=== PATIENT | male | born 2000 | race Hispanic/Latino ===

== ENCOUNTER 2021-07-09 11:25 | Emergency (ER) | payer OTHER, SELFPAY ==
--- NOTE | ~2021-07-09 | XR_ITS ---
XR chest 2V DATE: 07/09/2021 14:53 INDICATION: Left-sided chest pain TECHNIQUE: PA and lateral views COMPARISON: 09/12/2019 PA chest FINDINGS: Normal heart size. No hilar or mediastinal enlargement. No pulmonary infiltrate or consolid ation, pleural effusion or pulmonary vascular congestion or pneumothorax. Included skeletal structure s are normal. IMPRESSION: Negative Reviewed, dictated and finalized at location A. [facility] ASS[employer] IMPRESSION: Negative
[2021-07-09 11:30] VITALS: BP 131/80; PULSE 52; RESP 16; TEMP 36.6; O2SAT 99
[2021-07-09 14:05] VITALS: BP 120/74; PULSE 52; RESP 16; O2SAT 99
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
--- NOTE | 2021-07-09 15:09 | PC.NURSE ---
assuming care from peg montes
[2021-07-09 16:22] VITALS: BP 123/81; PULSE 104; RESP 18; O2SAT 100
== END 2021-07-09 16:24 | disposition home or self-care (01) ==
PROVIDERS: Emergency Provider Nurse Practitioner; PCP Registered Nurse
DX: S20.212A Contusion of left front wall of thorax, initial encounter (principal); V49.40XA Driver injured in collision with unspecified motor vehicles in traffic accident, initial encounter
CPT/HCPCS: 71046; 99283

== ENCOUNTER 2021-08-19 12:44 | Emergency (ER) | payer OTHER, SELFPAY ==
[2021-08-19 12:52] VITALS: BP 121/66; PULSE 82; RESP 16; TEMP 37.6; O2SAT 100
--- NOTE | 2021-08-19 13:02 | ED.URI ---
HPI - URI/Sore Throat General Chief Complaint: Medical Clearance Stated Complaint: chills/weller/congestion Time Seen by Provider: 08/19/21 13:21 Source: patient and RN notes reviewed Mode of arrival: ambulatory Limitations: no limitations History of Present Illness HPI Narrative: 20-year-old male presents with concern for low-grade fever, headache runny nose yesterday. Reports he took Tylenol and his symptoms resolved. Reports he missed work today because of his sickness yesterday. He denies any current symptoms such as headache, body aches, chills, sweats, cough, nasal congestion or rhinorrhea. Reports has not been vaccinated for Covid. MD elicited complaint: nasal congestion Related Data Allergies Allergy/AdvReac Type Severity Reaction Status Date / Time No Known Allergies Allergy Verified 08/19/21 12:58 Review of Systems Review of Systems: CONSTITUTIONAL: Denies malaise, chills, sweats, or fever. EYES: Denies visual changes, redness, or discharge. ENT: Denies rhinorrhea, congestion, sinus pain, otalgia and sore throat. CARDIOVASCULAR: Denies chest pain, palpitations, or edema. RESPIRATORY: Denies cough. Denies dyspnea. GASTROINTESTINAL: Denies abdominal pain, nausea, vomiting, diarrhea SKIN: Denies rash or itching. MUSCULOSKELETAL: Denies myalgia. NEUROLOGIC: Denies headache. All systems reviewed & are unremarkable except as noted in HPI and below PMFSH Past Medical History Medical History (Updated 08/19/21 @ 13:35 by Clara Olson NP) Healthy adolescent Surgical History Surgical History No pertinent past surgical history Family History Family History Mother No pertinent past medical history Social History Social History (Updated 07/09/21 @ 14:53 by Declan Keith, [facility], ) Smoking status: Never smoker Alcohol intake: never Substance use: never Gender identity (if verbalized by the patient): Male Spiritual care concerns: No Comments At time of signature, agree with nursing past medical, surgical, social and family history. There is no relevant family history pertinent to the presenting complaint Exam Narrative: GENERAL: Well-appearing, well-nourished, and in no acute distress. HEAD: Normocephalic EYES: PERRLA, conjunctivae clear ENT: Nares clear. Mucous membranes moist. TM pearly higgins with sharp light reflex bilaterally; no tragal tenderness. Oropharynx not erythematous without lesions. Tonsils not enlarged and without exudate, no drooling, no hoarseness, no trismus, uvula midline. NECK: Supple. No lymphadenopathy CHEST: Clear to auscultation, breath sounds equal. No wheezing, rhonchi, rales, or stridor. No respiratory distress, speaks in full sentences. HEART: Regular rate and rhythm. No murmur heard. SKIN: Warm, dry, no rash. NEURO: Alert and oriented x3. PSYCH: Normal mood and affect Course Course Emergency Course: Discussed with patient possible false negative with rapid Covid. Discussed seeking testing if symptoms return or new symptoms develop. Patient is aware of diagnosis, understands and agrees to treatment plan. Anticipatory guidance given. Patient agrees to follow-up as directed and is aware of reasons to seek care at the emergency department. Portions of this record may have been created with voice recognition software Vital Signs Vital signs: Vital Signs Temperature 99.6 F 08/19/21 12:52 Pulse Rate 82 08/19/21 12:52 Respiratory Rate 16 08/19/21 12:52 Blood Pressure 121/66 08/19/21 12:52 Pulse Oximetry 100 08/19/21 12:52 Temperature 99.6 F 08/19/21 12:52 Pulse Rate 82 08/19/21 12:52 Respiratory Rate 16 08/19/21 12:52 Blood Pressure 121/66 08/19/21 12:52 Pulse Oximetry 100 08/19/21 12:52 Reviewed. MDM - URI/Sore Throat MDM Narrative Medical decision making narrative: Differential diagnosis considered: Ann v
== END 2021-08-19 13:40 | disposition home or self-care (01) ==
PROVIDERS: Emergency Provider Nurse Practitioner; PCP Registered Nurse
DX: R09.89 Other specified symptoms and signs involving the circulatory and respiratory systems (principal); Z20.822 Contact with and (suspected) exposure to COVID-19
CPT/HCPCS: 87426; 99213; C9803; G0463

== ENCOUNTER 2021-11-18 09:48 | Emergency (ER) | payer OTHER, SELFPAY ==
--- NOTE | ~2021-11-18 | XR_ITS ---
XR wrist RT min 3V 11/18/2021 10:17 INDICATION: Right wrist pain PROCEDURE: 4 views right wrist COMPARISON: No prior studies for comparison. FINDINGS: Fracture, dislocation or subluxation is not identified. The soft tissues appear within norm al limits. No foreign bodies are identified. IMPRESSION: 1: NO ACUTE BONE OR JOINT ABNORMALITY IDENTIFIED. Reviewed, dictated and finalized at location A.
[2021-11-18 09:57] VITALS: BP 116/75; PULSE 69; RESP 18; TEMP 37; O2SAT 99
--- NOTE | 2021-11-18 10:02 | ED.URI ---
HPI - URI/Sore Throat General Chief Complaint: Extremity Injury, Upper Stated Complaint: Cough,Runny Nose Time Seen by Provider: 11/18/21 10:02 Source: patient Mode of arrival: ambulatory Limitations: no limitations History of Present Illness HPI Narrative: 21 yo M presents with c/o sore throat, cough, congestion, watery eyes for 4 days. Symptoms improving. Needs covid test for work. afebrile. Also reports pain to R wrist. 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 Yesterday pulled on somethign too hard and tire hit him in wrist. Wearing wrist splint from home. ROM intact. Bruising and swelling noted. Pt concerned he has fracture. All systems reviewed and negative except as noted above. Related Data Home Medications Medication Instructions Recorded Confirmed No Home Medications 11/18/21 11/18/21 Allergies Allergy/AdvReac Type Severity Reaction Status Date / Time No Known Allergies Allergy Verified 11/18/21 09:50 Review of Systems Review of Systems: CONSTITUTIONAL: Denies fever, chills, or sweats. EYES: Denies visual changes, redness, or discharge. ENT: Reports rhinorrhea, congestion, sore throat. Denies otalgia. CARDIOVASCULAR: Denies chest pain, palpitations, or edema. RESPIRATORY: Reports cough. Denies dyspnea. GASTROINTESTINAL: Denies abdominal pain, nausea, vomiting, or diarrhea. GENITOURINARY: Denies dysuria or hematuria. SKIN: Denies rash or itching. MUSCULOSKELETAL: Denies back pain, joint pain, or myalgia. Right wrist pain pain, bruising, swelling. NEUROLOGIC: Denies headache, numbness, or weakness. PSYCHIATRIC: Denies anxiety or depression. All other systems reviewed are negative, except as documented in HPI. [facility] Past Medical History Medical History (Updated 11/18/21 @ 10:32 by Yue Cruz NP) Healthy adolescent Surgical History Surgical History No pertinent past surgical history Family History Family History Mother No pertinent past medical history Social History Social History (Updated 07/09/21 @ 14:53 by GREG Andrade, ) Smoking status: Never smoker Alcohol intake: never Substance use: never Gender identity (if verbalized by the patient): Male Spiritual care concerns: No Comments At time of signature, agree with nursing past medical, surgical, social and family history. There is no relevant family history pertinent to the presenting complaint. Exam Narrative: GENERAL: This is a well-nourished, well-developed patient, in no apparent distress. HEAD: normocephalic, atraumatic. EYES: PERRL. Sclera clear/white. Vision is grossly intact. EARS: External ears normal, auditory canals clear and without drainage, TMs normal without perforation. Hearing grossly intact. NOSE: External nose normal. Clear nasal drainage. THROAT: Mucous membranes moist, posterior pharynx clear. NECK: Neck supple, non-tender without lymphadenopathy, masses or thyromegaly. CARDIOVASCULAR: Regular rate and rhythm without murmurs, gallops, or rubs. RESPIRATORY: Clear to auscultation. Breath sounds equal bilaterally. No wheezes, rales, or rhonchi. SKIN: warm, Dry, intact with no suspicious lesions or rash, good texture and turgor. NEURO: awake, alert, and oriented to person, place and time. There were no obvious focal neurologic abnormalities. EXTREMITIES: Tenderness to right distal wrist ulnar aspect With bruising and swelling. Radial pulse 2+. Range of motion intact. Course Course Level of Care: Express Care Visit Vital Signs Vital signs: Vital Signs Temperature 37.0 C 11/18/21 09:57 Pulse Rate 69 11/18/21 09:57 Respiratory Rate 18 11/18/21 09:57 Blood Pressure 116/75 11/18/21 09:57 Pulse Oximetry 99 11/18/21 09:57 Temperature 37.0 C 11/18/21 09:57 Pulse Rate 69 11/18/21 09:57 Respiratory Rate 18 11/18/21 09:57 Blood Pressure 116/75
== END 2021-11-18 10:36 | disposition home or self-care (01) ==
PROVIDERS: Emergency Provider Nurse Practitioner Family; PCP Registered Nurse
DX: J06.9 Acute upper respiratory infection, unspecified (principal); S60.211A Contusion of right wrist, initial encounter; W22.8XXA Striking against or struck by other objects, initial encounter; Y99.0 Civilian activity done for income or pay; Z20.822 Contact with and (suspected) exposure to COVID-19
CPT/HCPCS: 73110; 87426; 99213; C9803; G0463

== ENCOUNTER 2022-12-03 18:16 | Emergency (ER) | payer OTHER, SELFPAY ==
--- NOTE | 2022-12-03 18:18 | ED.EYEPROB ---
HPI - Eye Problem General Chief complaint: Eye Problems Stated complaint: Left Eye Irritation Time Seen by Provider: 12/03/22 18:56 Source: patient and RN notes reviewed Mode of arrival: ambulatory Limitations: no limitations History of Present Illness HPI Narrative: 22-year-old male presents with concern for injury to the left eye. Reports today at work he had hot metal piece of debris that flew up and hit his eyelid and then his eye. He reports he immediately rinsed out his eye. He reports he does not have any vision changes. His pain is minimal at this time. He denies any feeling of foreign body in his eye MD chief complaint: eye injury Related Data Allergies Allergy/AdvReac Type Severity Reaction Status Date / Time No Known Allergies Allergy Verified 12/03/22 18:21 Review of Systems Review of Systems: CONSTITUTIONAL: Denies malaise, chills, sweats, or fever. EYES: Denies visual changes. Denies redness, irritation, discharge. Reports left eye injury ENT: Denies rhinorrhea, congestion, sinus pain, otalgia or sore throat. SKIN: Denies rash or itching. NEUROLOGIC: Denies numbness, weakness, or headache. PSYCHIATRIC: Denies anxiety or depression. All systems reviewed & are unremarkable except as noted in HPI and below PMFSH Past Medical History Medical History (Updated 12/03/22 @ 19:09 by Clara Olson NP) Healthy adolescent Surgical History Surgical History No pertinent past surgical history Family History Family History Mother No pertinent past medical history Social History Social History (Updated 07/09/21 @ 14:53 by Declan Keith, [facility], ) Smoking status: Never smoker Alcohol intake: never Substance use: never Living arrangements: with family Gender identity (if verbalized by the patient): Male Spiritual care concerns: No Comments At time of signature, agree with nursing past medical, surgical, social and family history. There is no relevant family history pertinent to the presenting complaint Exam Narrative: GENERAL: Well-appearing, well-nourished, and in no acute distress. HEAD: Normocephalic, atraumatic. EYES: PERRLA and EOMI. No nystagmus. Bilateral conjunctivae and sclera clear. Upper and lower eyelid unremarkable, no periorbital edema noted. Corneal abrasion noted upon Wood's lamp see note ENT: Nares clear, turbinates pink, no rhinorrhea or epistaxis. Mucous membranes moist. TM pearly higgins with sharp light reflex bilaterally; no tragal tenderness. NECK: Supple. CHEST: No respiratory distress. Speaks in full sentences. HEART: Regular rate and rhythm. SKIN: Warm, dry, no visible rash. NEURO: Alert and oriented x3. PSYCH: Normal mood and affect Course Course Emergency Course: Patient is aware of diagnosis, understands and agrees to treatment plan. Anticipatory guidance given. Patient agrees to follow-up as directed and is aware of reasons to seek care at the emergency department. Portions of this record may have been created with voice recognition software Level of Care: Express Care Visit Vital Signs Vital signs: Reviewed. Procedures Other Procedure Procedure 1: Other Procedure: Tetracaine 1 gtt instilled in left eye, fluorescein stain applied. Two pinpoint corneal abrasions noted upon enal lamp exam at approximately 5 o'clock in relation to the pupil. Eye washed with NS 100 ml. No foreign bodies or Alisa sign noted. MDM - Eye Problem MDM Narrative Medical decision making narrative: Consideration of the following conditions may be warranted for the presenting problem, they are not final diagnoses: Bacterial conjunctivitis, allergic conjunctivitis, viral conjunctivitis, foreign body, blepharitis, chalazion, hordeolum, corneal abrasion, preseptal cellulitis, orbital cellulitis. No evidence of proptosis, ophthalmoplegia, vision l
[2022-12-03 18:34] VITALS: BP 129/68; PULSE 60; RESP 14; TEMP 36.9; O2SAT 99
--- NOTE | 2022-12-03 18:53 | PC.NURSE ---
eye set up at bedside.
== END 2022-12-03 19:15 | disposition home or self-care (01) ==
PROVIDERS: Emergency Provider Nurse Practitioner; PCP Registered Nurse
DX: S05.02XA Injury of conjunctiva and corneal abrasion without foreign body, left eye, initial encounter (principal); W20.8XXA Other cause of strike by thrown, projected or falling object, initial encounter; Y99.0 Civilian activity done for income or pay
CPT/HCPCS: 99213; A9270; G0463

== ENCOUNTER 2023-02-04 11:08 | Emergency (ER) | payer OTHER, SELFPAY ==
--- NOTE | ~2023-02-04 | XR_ITS ---
EXAMINATION: XR knee LT min 4V DATE: 02/04/2023 11:25 INDICATION: Left knee pop and pain. TECHNIQUE: 4 views of left knee were obtained. COMPARISON: None. FINDINGS: Bone alignment is normal. No fracture. Joint spaces are normal. There is a small knee joint effusion. IMPRESSION: 1. Small left knee joint effusion. Reviewed, dictated and finalized at location A.
[2023-02-04 11:25] VITALS: BP 124/67; PULSE 60; RESP 12; TEMP 37.3; O2SAT 98
--- NOTE | 2023-02-04 11:26 | ED.LOWEXIN ---
HPI - Extremity Injury (Lower) General Chief Complaint: Extremity Injury, Lower Stated Complaint: [place] a pop in left leg and it hurts Time Seen by Provider: 02/04/23 11:26 Source: patient Mode of arrival: ambulatory Limitations: no limitations History of Present Illness HPI Narrative: Mr. Tomlinson is a 22-year-old male patient presenting to the clinic today with complaints of left knee pain after injury while playing soccer. He reports that while he is playing soccer he was trying to steal the ball from an opponent and his leg when one way and his body weight went the other way and he heard a pop and his left knee and developed pain. Is having pain to the anterior and posterior knee Related Data Home Medications Medication Instructions Recorded Confirmed No Home Medications 02/04/23 02/04/23 Allergies Allergy/AdvReac Type Severity Reaction Status Date / Time No Known Allergies Allergy Verified 02/04/23 11:27 Review of Systems Review of Systems: Pertinent positives per HPI. Patient denies any fever, chills, rash, headache, visual changes, dizziness, cough, runny nose, sore throat, shortness of breath, chest pain, palpitations, nausea, vomiting, diarrhea, constipation, abdominal pain, or any urinary issues. PMFSH Past Medical History Medical History Healthy adolescent Surgical History Surgical History No pertinent past surgical history Family History Family History Mother No pertinent past medical history Social History Social History Smoking status: Never smoker Alcohol intake: never Substance use: never Living arrangements: with family Gender identity (if verbalized by the patient): Male Spiritual care concerns: No Comments At the time of my signature, I reviewed and agree with the nursing past medical, surgical, social, and family history. There is no relevant family history pertinent to the patient complaint. Exam Narrative: General: Well-developed, well nourished, in no apparent distress Head: Normocephalic, atraumatic. Cardio: Regular rate and rhythm, s1 and s2 normal, no murmur appreciated. Resp: Clear to auscultation bilaterally, no rhonchi, rales, wheezing or rubs. Musculoskeletal: No deformity, tender to palpation over the posterior and anterior knee, pain with full extension and flexion, muscle strength strong and equal, peripheral pulse strong, mild swelling, no cyanosis, normal gait and station Course Course Emergency Course: Portions of this record may have been created with voice recognition software. Level of Care: Express Care Visit Vital Signs Vital signs: Vital Signs Temperature 37.3 C 02/04/23 11:25 Pulse Rate 60 02/04/23 11:25 Respiratory Rate 12 02/04/23 11:25 Blood Pressure 124/67 02/04/23 11:25 Pulse Oximetry 98 02/04/23 11:25 Oxygen Delivery Room Air 02/04/23 11:25 Temperature 37.3 C 02/04/23 11:27 Pulse Rate 60 02/04/23 11:27 Respiratory Rate 12 02/04/23 11:27 Blood Pressure 124/67 02/04/23 11:27 Pulse Oximetry 98 02/04/23 11:27 Oxygen Delivery Room Air 02/04/23 11:27 Vital signs reviewed MDM - Extremity Injury (Lower) MDM Narrative Medical decision making narrative: At the time of visit patient is resting comfortably on the exam table. X-ray of the left knee was performed and shows a small joint effusion. I suspect patient has an internal derangement of left knee. Recommend follow-up with his PCP if symptoms persist over 1 week to get a MRI to rule out meniscus tear or injury. Supportive measures were discussed with the patient he voiced understanding discharge instructions and agrees to treatment plan. Differential Diagnosis Differential diagnosis
[2023-02-04 11:27] VITALS: BP 124/67; PULSE 60; RESP 12; TEMP 37.3; O2SAT 98
--- NOTE | 2023-02-04 11:47 | ED_ITS ---
HPI - Extremity Injury (Lower) General Chief Complaint: Extremity Injury, Lower Stated Complaint: [place] a pop in left leg and it hurts Time Seen by Provider: 02/04/23 11:26 Source: patient Mode of arrival: ambulatory Limitations: no limitations History of Present Illness HPI Narrative: Seth is a 22-year-old male patient presenting to the clinic today with complaints of Related Data Home Medications Medication Instructions Recorded Confirmed No Home Medications 02/04/23 02/04/23 Allergies Allergy/AdvReac Type Severity Reaction Status Date / Time No Known Allergies Allergy Verified 02/04/23 11:27 [facility] Past Medical History Medical History Healthy adolescent Surgical History Surgical History No pertinent past surgical history Family History Family History Mother No pertinent past medical history Social History Social History Smoking status: Never smoker Alcohol intake: never Substance use: never Living arrangements: with family Gender identity (if verbalized by the patient): Male Spiritual care concerns: No Course Vital Signs Vital signs: Vital Signs Temperature 37.3 C 02/04/23 11:25 Pulse Rate 60 02/04/23 11:25 Respiratory Rate 12 02/04/23 11:25 Blood Pressure 124/67 02/04/23 11:25 Pulse Oximetry 98 02/04/23 11:25 Oxygen Delivery Room Air 02/04/23 11:25 Temperature 37.3 C 02/04/23 11:27 Pulse Rate 60 02/04/23 11:27 Respiratory Rate 12 02/04/23 11:27 Blood Pressure 124/67 02/04/23 11:27 Pulse Oximetry 98 02/04/23 11:27 Oxygen Delivery Room Air 02/04/23 11:27 Discharge Plan Discharge Clinical Impression: Acute internal derangement of left knee Patient Disposition: Home, Self-Care Condition: Stable Instructions: Antibiotic Form, Knee Sprain (ED), Hinged Knee Brace (ED) Additional Instructions: Left knee x-ray shows small joint effusion otherwise no sign of fracture or malalignment. Rest, ice, elevate, and wear darron wrap as directed Wear hinged knee brace when up ambulating Tylenol/motrin for pain as discussed. Gradually bear weight No running or sports until healed. Follow up with your PCP if symptoms persist more than 1 week. May need MRI to rule out ligament tear or meniscus tear. Prescriptions: No Action No Home Medications Follow-up/Referrals: Damien,DRE Lopez [Primary Care Provider] - Time of Disposition: 11:49
== END 2023-02-04 12:00 | disposition home or self-care (01) ==
PROVIDERS: Emergency Provider Nurse Practitioner Family; PCP Registered Nurse
DX: M23.92 Unspecified internal derangement of left knee (principal)
CPT/HCPCS: 73564; 99213; G0463

== ENCOUNTER 2023-08-08 15:20 | Emergency (ER) | payer OTHER, SELFPAY ==
[2023-08-08 15:32] VITALS: BP 147/78; PULSE 77; RESP 16; TEMP 37.2; O2SAT 100
--- NOTE | 2023-08-08 16:01 | ED.GENADULT ---
HPI - General Adult General Chief complaint: Urogenital-Male Stated complaint: urinary issue, swollen testicle Source: patient, RN notes reviewed and old records reviewed Mode of arrival: ambulatory Limitations: no limitations History of Present Illness HPI narrative: 21 urine year old male presents to [facility] with complaint of intermittent penile pain, left testicle pain, burning with urination and burning with ejaculation. Patient states pain is intermittent. Patient denies injury, patient denies penile discharge. Patient states has been in a monogamous relationship for 4 years complaint: penile pain Onset (ago): week(s) (1) Related Data Home Medications Medication Instructions Recorded Confirmed No Home Medications 02/04/23 08/08/23 Allergies Allergy/AdvReac Type Severity Reaction Status Date / Time No Known Allergies Allergy Verified 08/08/23 15:35 Review of Systems Constitutional: Constitutional: Reports no additional constitutional complaints Eyes: Eyes: Reports no additional eye complaints ENT: Reports system reviewed and no additional complaints, except as documented Cardiovascular: Cardiovascular: Reports no additional cardiovascular complaints Respiratory: Respiratory: Reports no additional respiratory complaints Gastrointestinal: Gastrointestinal: Reports no additional gastrointestinal complaints, Denies abdominal pain, Denies bloating, Denies nausea, Denies vomiting and Denies hematemesis Genitourinary: Genitourinary: Denies genital lesions, Reports genital pain, Reports dysuria, Denies flank pain, Reports painful ejaculations, Denies penile discharge, Denies testicular mass, Reports testicular pain, Denies urinary frequency, Denies urinary hesitancy, Denies urinary incontinence and Denies urinary urgency Neurologic: Reports system reviewed and no additional complaints, except as documented [facility] Past Medical History Medical History Healthy adolescent Surgical History Surgical History No pertinent past surgical history Family History Family History (Reviewed 02/04/23 @ 11: by Ermias Santana APRN) Mother No pertinent past medical history Social History Social History Smoking status: Never smoker Alcohol intake: never Substance use: never Living arrangements: with family Gender identity (if verbalized by the patient): Male Spiritual care concerns: No Comments At the time of my signature, I reviewed and agree with the nursing past medical, surgical, social, and family history. There is no relevant family history pertinent to the patient complaint. Exam Const: General: cooperative, healthy appearing, no acute distress and well nourished Nutritional Appearance: well nourished Orientation/consciousness: patient oriented x3 Limitations: no limitations HENMT: Head: normal to inspection and normocephalic Ears: external ears normal, TM's normal bilaterally, mastoids normal and Abnormal EAC present Face/Nose/Sinus: normal facial exam Face and sinus: normal facial exam Mouth: Yes Normal oral and palatal mucosa present, Yes oropharynx normal and Yes moist mucous membranes Throat: posterior oropharynx normal, tonsils normal, uvula midline and no uvular edema Eyes: General: appearance normal, both eyes and all related structures Sclera: sclerae normal Pupils: Equal, round and reactive pupils present Resp: Effort & Inspection: normal respiratory effort, able to speak in complete sentences, no audible wheezes, no cough, no respiratory distress and no retractions Auscultation: clear to auscultation bilaterally, no crackles, no rales, no rhonchi and no wheezes Cardio: Rate: regular rate GI: GI Palp: No abdominal tenderness, Yes Soft to palpation, No Tenderness to palpation presen
[2023-08-08 22:14] LABS: Trichomonas Vag PCR NOT DETECTED (NOT DETECTE)
[2023-08-08 22:36] LABS: Chlamydia trachomatis NOT DETECTED (NOT DETECTE); Neisseria gonorrhoeae PCR NOT DETECTED (NOT DETECTE)
== END 2023-08-08 16:25 | disposition home or self-care (01) ==
PROVIDERS: Emergency Provider Registered Nurse; PCP Registered Nurse
DX: N50.812 Left testicular pain (principal)
CPT/HCPCS: 81003; 87086; 87491; 87591; 87661; 99213; G0463

== ENCOUNTER 2023-10-29 10:20 | Outpatient (CLI) | payer OTHER, SELFPAY ==
--- NOTE | ~2023-10-29 | US_ITS ---
EXAMINATION: US scrotum doppler DATE: 10/29/2023 11:35 INDICATION: Left testicular pain TECHNIQUE: Testicular sonogram utilizing grayscale and Doppler COMPARISON: None. FINDINGS: The right testis measures 4.5 x 1.9 x 2.9 cm. The left testis measures 4.7 x 1.6 x 3.5 cm. There is normal vascular flow to both testes. The right epididymis contains a 1.8 cm cyst or spermato lianne. The left epididymis is normal with normal vascular flow. There is no varicocele or hydrocele. IMPRESSION: 1. No sonographic correlate for the patient's symptoms. Reviewed, dictated and finalized at location L. INVESTIGATOR
== END 2023-10-29 10:21 | disposition home or self-care (01) ==
LOC: ANHIMG 10:22
PROVIDERS: PCP Registered Nurse; Visit Provider Registered Nurse
DX: N50.812 Left testicular pain (principal)
CPT/HCPCS: 76870; 93976